=== PATIENT | female | born 1945 | race African-American/Black ===

== ENCOUNTER 2019-02-05 18:44 | Emergency (ER) | payer OTHER, BC, MEDICARE ==
[2019-02-05] MEDS ORDERED: ACETAMINOPHEN 325 MG TABLET PO ONE (19:04)
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
[2019-02-05] MEDS ORDERED: LIDOCAINE 1% INJ-PF (10 MG/ML) 30 ML SDV INJ ONE (19:22)
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
[2019-02-05] MEDS ORDERED: OXYCODONE-ACETAMINOPHEN 5-325 MG TABLET PO ONE (19:59)
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
[2019-02-05 21:51] LABS: APPEARANCE,URINE SLIGHTLY-CLOUDY; BILIRUBIN,URINE NEGATIVE (NEGATIVE); COLOR,URINE YELLOW; GLUCOSE, URINE NEGATIVE (NEGATIVE); KETONES,URINE NEGATIVE (NEGATIVE); LEUKOCYTE ESTERASE,URINE LARGE (NEGATIVE); NITRITE,URINE NEGATIVE (NEGATIVE); PROTEIN,URINE NEGATIVE (NEGATIVE); URINE SPECIFIC GRAVITY 1.009; UROBILINOGEN,URINE NEGATIVE mg/dL (<2.0)
[2019-02-05 22:44] VITALS: BP 119/74
== END 2019-02-05 22:43 | disposition home or self-care (01) ==
LOC: ER 18:44
DX: M54.2 Cervicalgia (principal); M54.5 Low back pain; R10.9 Unspecified abdominal pain; V87.7XXA Person injured in collision between other specified motor vehicles (traffic), initial encounter
CPT/HCPCS: 70450; 71046; 72110; 72125; 81001; 99284